=== PATIENT | male | born 1980 | race Caucasian/White ===

== ENCOUNTER 2019-04-24 23:37 | Emergency (ER) | payer SELFPAY ==
[~2019-04-24] VITALS: Ht 160 cm; Wt 97.5 kg
[2019-04-24 23:40] VITALS: BP 112/70
--- NOTE | 2019-04-24 23:40 | NUR ---
PT SHONDA ALS. TAKEN TO BED 6
[2019-04-25] MEDS ORDERED: NACL 0.9% 1,000 ML IV ONE (00:05)
--- NOTE | 2019-04-25 00:15 | NUR ---
Dr. Gee examining patient.
[2019-04-25 00:18] LABS: BASOPHILS # (AUTO) 0.1 K/uL (0.00-0.22); BASOPHILS % (AUTO) 0.8 % (0.0-2.0); EOSINOPHILS # (AUTO) 0.4 K/uL (0-0.4); HEMOGLOBIN 14.3 g/dL (12.0-18.0); LYMPHOCYTES # (AUTO) 5.4 K/uL (2.0-11.5); LYMPHOCYTES % (AUTO) 42.1 % (20.5-51.1); MEAN CORPUSCULAR HEMOGLOBIN 32 pg (27-31); MEAN CORPUSCULAR HGB CONC 34 g/dL (33-37); MEAN CORPUSCULAR VOLUME 93.9 fL (80-94); MONOCYTES # (AUTO) 0.9 K/uL (0.8-1.0); NEUTROPHILS # (AUTO) 6.1 K/uL (1.8-7.7); NEUTROPHILS % (AUTO) 47.1 % (42.2-75.2); PLATELET COUNT (AUTO) 287 K/uL (140-450); RED BLOOD CELL COUNT(AUTO) 4.47 MIL/uL (4.20-6.10); RED CELL DISTRIBUTION WIDTH 12.9 % (11.6-13.7); WHITE BLOOD COUNT (AUTO) 12.8 K/uL (4.8-10.8)
--- NOTE | 2019-04-25 00:28 | NUR ---
PT TAKEN TO RAD
[2019-04-25 00:29] LABS: ANION GAP 15.3 (8-16); CARBON DIOXIDE 24.8 mmol/L (21-32); CHLORIDE 104 mmol/L (98-107); CREATININE 1.1 mg/dL (0.7-1.3); GFR ARICAN-AMERICAN 95 mL/min (>90); GLUCOSE 110 mg/dL (74-106); POTASSIUM 3.1 mmol/L (3.5-5.1); SODIUM SERUM 141 mmol/L (136-145); UREA NITROGEN, BLOOD 13 mg/dL (7-18)
[2019-04-25 00:36] LABS: ALBUMIN 3.7 g/dL (3.4-5.0); ASPARTATE AMINOTRANSFERASE 19 U/L (15-37); TOTAL BILIRUBIN 0.4 mg/dL (0.0-1.0)
--- NOTE | 2019-04-25 00:36 | NUR ---
PT RETURN FROM RAD
[2019-04-25 00:37] LABS: ACETAMINOPHEN < 0.5 ug/ml (10-30); SALICYLATE < 2.8 mg/dL (2.8-20.0)
[2019-04-25 01:04] LABS: BARBITURATE, URINE NEG. ng/ml (NEG <=200); BENZODIAZEPINE, URINE NEG. ng/mL (NEG <=200); CANNABINOID, URINE NEG. ng/mL (NEG <=50); COCAINE, URINE NEG. ng/mL (NEG <=300); OPIATE, URINE NEG. ng/mL (NEG <=2000); PHENCYCLIDINE SCREEN,URINE NEG. ng/mL (NEG <=25)
[2019-04-25] MEDS ORDERED: POTASSIUM CHLORIDE 10 MEQ TABER PO ONE (01:10)
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
--- NOTE | 2019-04-25 01:20 | NUR ---
RECEIVED REPORT FROM DANIEL WILSON. PT IN BED RESTING, IN STABLE CONDITION AT THIS TIME.
[2019-04-25 02:13] VITALS: BP 125/70
--- NOTE | 2019-04-25 02:13 | NUR ---
PATIENT DISCHARGED VSS AT THIS TIME, WRITTNE AND VERBAL AFTER CARE INSTRUCTIONS GIVEN AND EXPLAINED, PT VERBALIZED UNDERSTANDING, ALL QUESTIONS ADDRESSED, GIVEN OPPORTUNITY TO ASKED QUESTIONS, ADVISED TO FOLLOW UP WITH PMD.
== END 2019-04-25 02:13 | disposition home or self-care (01) ==
LOC: MED 23:37
DX: R55 Syncope and collapse (principal); F10.129 Alcohol abuse with intoxication, unspecified; Z88.0 Allergy status to penicillin
CPT/HCPCS: 36415; 70450; 80053; 80305; 85025; 93005; 96360; 99283; G0480; G0482; J7030